=== PATIENT | female | born 1985 | race Caucasian/White ===

== ENCOUNTER 2016-08-25 05:09 | Inpatient (IN) | payer BC, OTHER ==
[2016-08-25] MEDS ORDERED: OXYTOCIN 20 UNITS in RINGER'S SOLUTION,LACTATED 1,000 ML IV ONE (05:17)
[2016-08-25] MEDS ORDERED: RINGER'S SOLUTION,LACTATED 1,000 ML IV PRN ×2 (05:17)
[2016-08-25] MEDS ORDERED: ceFAZolin SODIUM 2 GM in DEXTROSE 5 % IN WATER 100 ML IV ONE ×2 (05:17)
[2016-08-25 05:43] LABS: Hematocrit 35.8 % (37.0-47.0); Hemoglobin 12.5 gm/dL (12.5-16.0); Mean Corpuscular Hemoglobin 32.1 pg (27-31); Mean Corpuscular Hgb Conc 34.9 g/dl (32-36); Mean Platelet Volume 11.1 fl (6.0-9.5); Neutrophil # 4.8 K/mm3 (1.3-6.0); Neutrophil % 65.4 % (42-75.0); Platelet Count 152 K/mm3 (150-450); Red Blood Count 3.89 M/mm3 (4.2-5.4); Red Cell Distribution Width 12.4 % (11.5-14.0); White Blood Count 7.4 K/mm3 (4.0-10.5)
[2016-08-25] MEDS ORDERED: ceFAZolin SODIUM 2 GM in DEXTROSE 5 % IN WATER 50 ML IV ONE ×2 (07:15)
[2016-08-25] MEDS ORDERED: NALOXONE HCL 1 MG/1 ML SYRG IV PRN ×2 (08:03)
[2016-08-25] MEDS ORDERED: ONDANSETRON HCL/PF 2 MG/ML VIAL IV PRN ×2 (08:03→09:36)
[2016-08-25] MEDS ORDERED: diphenhydrAMINE HCL 50 MG/ML VIAL IV PRN (08:03)
[2016-08-25] MEDS ORDERED: RINGER S LACTATED IV ONE (08:05)
[2016-08-25] MEDS ORDERED: RINGER'S SOLUTION,LACTATED 1,000 ML IV ONE ×2 (08:15→08:20)
[2016-08-25] MEDS ORDERED: BISACODYL 10 MG SUPP.RECT RC PRN (09:36)
[2016-08-25] MEDS ORDERED: SENNOSIDES 8.6 MG TABLET PO PRN (09:36)
[2016-08-25] MEDS ORDERED: oxyCODONE HCL/ACETAMINOPHEN 1 TAB TABLET PO PRN ×2 (09:36)
[2016-08-25] MEDS ORDERED: SIMETHICONE 80 MG TAB.CHEW PO PRN (09:36)
[2016-08-25] MEDS ORDERED: KETOROLAC TROMETHAMINE 30 MG/ML VIAL IV PRN (09:36)
--- NOTE | 2016-08-25 09:53 | OR ---
Operative Report - Dictated Report Narrative: Operative report: 08/25/2016 Preoperative diagnosis: Prior , 38.5 weeks, type 1 diabetes controlled on insulin pump, macrosomia, hypothyroidism Postoperative diagnosis: Same Procedure: Repeat low-transverse section Surgeon: Neris Tinsley D.O. [employer]: OR staff Anesthesia: Spinal IV fluids: 800 Milliliters Urine output: 400 Milliliters EBL: 400 Milliliters Findings: Male in cephalic presentation, Apgars of 8 and 9, normal- appearing ovaries, tubes, and uterus Drains: Eastman catheter to gravity Pathology: None Cord blood and cord sample collected Complications: None Condition: Stable The patient was taken to the operating room with IV fluids running and Eastman catheter in place. She was placed in the dorsal supine position with a leftward tilt. She was prepped and draped in the normal sterile fashion. A Pfannenstiel skin incision was made with the scalpel approximately 2 cm above the pubic symphysis along the prior incision. The subcutaneous tissue was dissected down to the fascia. The fascia was incised in the midline and extended laterally. The superior aspect of the fascia was grasped with Shelbie clamps and the rectus muscles were dissected off the fascia using Ledbetter scissors and blunt dissection. In a similar fashion, the inferior aspect of the fascia was grasped and the rectus muscles dissected off. The peritoneum was then entered and extended with good visualization of the bowel and bladder. The uterine incision was made in a low-transverse fashion using the scalpel. It was extended laterally in a blunt manner. The was found to be cephalic. The infant was then delivered atraumatically. The cord was clamped and cut. The was handed off to the waiting hotel services sales representative. The placenta was then delivered spontaneously. The uterus was cleared of all clots and debris. Uterine incision was reapproximated using 0 Vicryl in a running locked fashion. Cord blood was then collected and cord samples collected per Family Cord protocol and patient's request. A second layer of 0 Vicryl was used to imbricate the uterine incision. Hemostasis was obtained. The peritoneum was then reapproximated using 3-0 Monocryl. The rectus muscles were inspected, cautery was used to obtain hemostasis. The fascia was then reapproximated with 0 Vicryl. The subcutaneous tissue was then irrigated. Bovie cautery was used to obtain hemostasis. The subcutaneous tissue was then reapproximated using 3-0 Monocryl. The skin was closed in a subcuticular fashion using 4-0 Monocryl. The incision was found to be hemostatic. Benzoin and Steri-Strips were then applied. Telfa and ABDs bandage was then placed. The patient tolerated the procedure well. Sponge, lap, needle, and instrument counts were correct throughout the entire procedure. The patient was taken to the recovery room in stable condition. History for MU Definition: * The number of deliveries resulting in a live the patient experienced prior to current hospitalization * The previous delivery of live twins or any live multiple gestation is considered one live event. *If primagravida or nulliparous is documented select zero for the number of previous live births. Live Events: 1
[2016-08-25] MEDS ORDERED: FLUCONAZOLE 150 MG TABLET PO ONE (10:10)
[2016-08-25] MEDS: IBUPROFEN 800 MG TABLET PO PRN ×2 (13:18→19:36)
[2016-08-25] MEDS: ENOXAPARIN SODIUM 40 MG/0.4 ML SYRG SC SCH (15:40)
[2016-08-25] MEDS ORDERED: RHO(D) IMMUNE GLOBULIN 300 MCG DISP.SYRIN IM ONE (18:00)
[2016-08-25] MEDS: DOCUSATE SODIUM 100 MG CAPSULE PO SCH (20:51)
[2016-08-26] MEDS: IBUPROFEN 800 MG TABLET PO PRN ×4 (02:07→21:06)
[2016-08-26] MEDS: DOCUSATE SODIUM 100 MG CAPSULE PO SCH ×2 (08:53→21:06)
--- NOTE | 2016-08-26 08:55 | PN ---
Progess Note - Interim Narrative: 08/26/16 08:54 Subjective: Patient is doing well, ambulating, voiding, tolerating by mouth. Minimal lochia. Pain controlled with medication. Objective: Vital signs stable General: no acute distress Abdomen: Soft, nondistended, diffusely tender, fundus firm Skin: Incision is clean, dry and intact Extremities: Minimal edema, nontender Assessment and plan: Postoperative day 1 Feeding: Breast and supplementing with donor milk Pain: Controlled with by mouth medication control: OCPs Type 1 diabetes: Controlled on insulin pump Routine postoperative care.
--- NOTE | 2016-08-26 10:14 | PN ---
Subjective - Date and Time Seen Date: 08/26/16 Time: 10:00 Subjective Narrative: She denies complications related to Duramorph spinal and bilateral ultrasound- guided tap blocks. Pain appears to be well-controlled. Objective - Review of Systems Generalized/Overall Review: Reports: No Symptoms Reported - Vitals Vitals: Last Vital Signs Temp 37.1 C 08/26/16 07:00 Pulse 148 H 08/26/16 07:00 Resp 50 H 08/26/16 07:00 BP 102/58 08/26/16 03:04 Pulse Ox 96 08/25/16 23:30 - Exam Constitutional: Present: Alert, Oriented x3, Cooperative, No distress Assessment/Plan Plan Narrative: Continue current pain medications as prescribed.
[2016-08-26] MEDS: ENOXAPARIN SODIUM 40 MG/0.4 ML SYRG SC SCH (15:54)
[2016-08-27] MEDS: IBUPROFEN 800 MG TABLET PO PRN ×3 (04:03→16:23)
[2016-08-27 09:28] VITALS: BP 121/73
[2016-08-27] MEDS: DOCUSATE SODIUM 100 MG CAPSULE PO SCH (10:33)
--- NOTE | 2016-08-27 10:35 | PN ---
Subjective - Date and Time Seen Date: 08/27/16 Subjective Narrative: POD#2, s/p repeat c/s doing well. type 1 DM on insulin pump, glucose overall within target per patient. ambulating. pain controlled on ibuprofen only. normal lochia. breast feeding. desires to go home today. Objective - Vitals Vitals: Last Vital Signs Temp 36.9 C 08/27/16 09:01 Pulse 83 08/27/16 09:01 Resp 18 08/27/16 09:01 BP 121/73 08/27/16 09:01 Pulse Ox 98 08/27/16 09:01 - Exam Constitutional: Present: Alert, Oriented x3, Cooperative Respiratory: Present: no respiratory distress Cardiovascular/Chest: Present: normal peripheral pulses Abdomen: Present: soft, nondistended, other - fundus firm. incision: dry and clean with steri strips. Extremity: Present: normal range of motion, no calf tenderness, pedal edema Skin Exam: Present: normal color, warm/dry, no cyanosis Eye contact: Present: cooperative, good eye contact, normal speech Assessment/Plan Plan Narrative: A: post op day 2, s/p repeat c/s. Type I DM on pump and stable. Wants to go home today. Plan: routine post op care. will discharge home today. Laurie Mccabe MD
[2016-08-27] MEDS: ENOXAPARIN SODIUM 40 MG/0.4 ML SYRG SC SCH (16:23)
== END 2016-08-27 17:00 | disposition home or self-care (01) | DRG 766 ==
LOC: MS 05:09
PROVIDERS: ADMIT Obstetrics & Gynecology Gynecologic Oncology; ATTEND Obstetrics & Gynecology Gynecologic Oncology
PROC: 4A1HXCZ Monitoring of Products of Conception, Cardiac Rate, External Approach (ICD-10-PCS; 2016-08-25)
PROC: 10D00Z1 Extraction of Products of Conception, Low, Open Approach (ICD-10-PCS; principal; 2016-08-25 08:00)
DX: O24.02 Pre-existing type 1 diabetes mellitus, in childbirth (principal); E10.9 Type 1 diabetes mellitus without complications; O36.63X0 Maternal care for excessive fetal growth, third trimester, not applicable or unspecified; O99.284 Endocrine, nutritional and metabolic diseases complicating childbirth; E03.9 Hypothyroidism, unspecified; O34.211 Maternal care for low transverse scar from previous cesarean delivery; Z96.41 Presence of insulin pump (external) (internal); Z3A.39 39 weeks gestation of pregnancy; Z37.0 Single live birth; Z79.4 Long term (current) use of insulin
CPT/HCPCS: 36415; 59025; 59510; 85025; 85460; 86850; 86870; 86900; J2790